=== PATIENT | female | born 1995 | race Caucasian/White ===

== ENCOUNTER 2020-12-04 08:59 | Emergency (ER) | payer OTHER, SELFPAY ==
[2020-12-04 09:18] VITALS: BP 138/83; PULSE 87; RESP 15; TEMP 36.3; O2SAT 98; BMI 46.0
--- NOTE | 2020-12-04 10:00 | USCV_ITS ---
Janki Whatley Age: 25 Gender: F : 1995 Exam Date: 12/04/2020 10:22 Ordering Phys: Tiffani Buck Technologist: Analisa James [place] [facility] [place]: RLE CALF PAIN HISTORY: Lower extremity pain. PROCEDURES: Venous duplex imaging was performed in only the right lower extremity. The following venous structures were evaluated: common femoral vein, profunda vein, proximal portion of the greater saphenous vein, superficial femoral vein, and the popliteal vein. In addition, the posterior tibial and peroneal trunk were evaluated. Serial compression, augmentation maneuvers, and spectral Doppler flow evaluation were performed. FINDINGS: No evidence of DVT seen in any vessel visualized at this time. CONCLUSIONS No evidence of right lower extremity DVT. Luc Kee MD (Electronically Signed) Final Date: 04 Dec 2020 17:53 S
--- NOTE | 2020-12-04 10:10 | ED_ITS ---
HPI - Extremity Problem General: Chief complaint: Extremity Problem,Nontraumatic Stated complaint: POSS BLOOD CLOT ON CALF Time Seen by Provider: 12/04/20 09:23 Source: patient Mode of arrival: ambulatory Limitations: no limitations History of Present Illness: HPI Narrative: Patient is a nice 25-year-old female who is one week via vaginal delivery here for concerns of a possible blood clot to her right lower extremity. Patient tells me this morning she noticed a palpable cord and some localized swelling to her right calf. She apparently contacted her PCP/OB in [place] where she delivered who recommended she come to the ED for an ultrasound to rule out a DVT. Patient is not complaining of shortness of breath or difficulty breathing. She states she is doing well . Baby is eating and sleeping well. MD Complaint: extremity pain Onset (ago): hour(s) Pain Consistency: constant Location: right and lower extremity Radiation: none Relieving factors: nothing Exacerbating factors: nothing Associated symptoms: Reports no associated symptoms; Deny chest pain or fever(s) Context: recent surgery/procedure (vaginal delivery) Review of Systems Const: Denies: fever(s), chills, body aches, fatigue or malaise Card: Denies: chest pain Resp: Denies: dyspnea Musc: Reports: extremity pain (R calf) and extremity swelling (small area of swelling to R calf); Denies: neck pain, back pain, joint pain, joint swelling, joint redness, joint warmth or limited range of motion Neuro: Denies: numbness in extremities, weakness in extremities or sensory changes Physical Exam Const: COMMON NORMALS: no acute distress, patient oriented x3, no limitations and alert GENERAL APPEARANCE: cooperative Resp: COMMON NORMALS: normal respiratory effort and clear to auscultation bilaterally AUSCULTATION: clear to auscultation bilaterally Cardio: COMMON NORMALS: regular rate and regular rhythm RATE: regular rate RHYTHM: regular rhythm Extremity: COMMON NORMALS: full ROM, capillary refill normal, no joint enlargement, no clubbing, cyanosis or edema and no pedal edema GENERAL: Yes normal exam except as noted OTHER: pt has a small palpable cord like area to R medial calf; tenderness localized to this area; no diffuse swelling noted, no redness/warmth; negative Humera's EXTREMITY IMAGE (FRONT): 1. tender palpable cord like area Neuro: COMMON NORMALS: patient oriented x3, moves all extremities, no focal motor deficits, no sensory deficits noted and gait normal SENSORIUM/ORIENTATION: Yes alert Skin: COMMON NORMALS: no rashes or lesions noted GENERAL SKIN EXAM: no rashes or lesions noted TRAUMA: no lacerations or abrasions Course Vital Signs: Vital signs: Vital Signs Temperature 97.3 F L 12/04/20 09:18 Pulse Rate 87 12/04/20 09:18 Respiratory Rate 15 12/04/20 09:18 Blood Pressure 138/83 12/04/20 09:18 Pulse Oximetry 98 12/04/20 09:18 MDM - Extremity (Nontraumatic) Imaging Data^: US R LE venous: My impression: Per US tech-no DVT, no superficial thrombus noted Discharge Plan Discharge Patient Disposition: Home Clinical Impression: Phlebitis of superficial vein of right lower extremity Condition: Stable Discharge Orders: Discharge ED (Routine); Ordered 12/04/20 Ordered By: Tiffani Buck Activity Restrictions/Additional Instructions: You may return to the emergency department for worsening or severe calf pain, redness or diffuse swelling to your lower extremity, red streaking up your leg, fevers, severe chest pain or shortness of breath, or any other concerns you may have. Coding Level of Care Code ED Waste Reduction Coordinator for Brianne Fwd Exam Detailed
== END 2020-12-04 10:41 | disposition home or self-care (01) ==
PROVIDERS: Emergency Provider Physician Assistant
DX: I80.01 Phlebitis and thrombophlebitis of superficial vessels of right lower extremity (principal)
CPT/HCPCS: 93971; 99282